=== PATIENT | female | born 1995 | race Caucasian/White ===

== ENCOUNTER 2016-09-25 06:48 | Inpatient (IN) | payer OTHER ==
[2016-09-18 17:36] VITALS: BMI 21.5
[2016-09-25] MEDS ORDERED: BUPIVACAINE HCL/PF 2.5 MG/ML - 30 ML VIAL IJ ONE (07:22)
[2016-09-25] MEDS ORDERED: GUM MASTIC/STORAX/MSAL/ALCOHOL 1 DRP DROPSBTL MC ONE (07:23)
[2016-09-25] MEDS ORDERED: LIDOCAINE 1%-EPI 1:100,000 30 ML MDV IJ ONE (07:23)
[2016-09-25] MEDS ORDERED: CEFAZOLIN (PRE-DOCKED) 50 ML IVPB ONE (07:37)
[2016-09-25] MEDS ORDERED: PROPOFOL 20 ML ONE (07:40)
[2016-09-25] MEDS ORDERED: ROCURONIUM BROMIDE 50 MG/5 ML VIAL ONE (07:40)
[2016-09-25] MEDS ORDERED: SUCCINYLCHOLINE CHLORIDE 200 MG/10 ML VIAL ONE (07:40)
[2016-09-25] MEDS ORDERED: MIDAZOLAM HCL 2 MG/2 ML SINGLE DOSE VIAL ONE ×5 (07:41→11:23)
[2016-09-25] MEDS: GABAPENTIN 300 MG CAPSULE (FP) PO ONE (07:50)
[2016-09-25] MEDS: oxyCODONE HCL 10 MG SUSTAINED ACTING TABLET PO STA (07:50)
--- NOTE | 2016-09-25 07:55 | HP ---
History & Physical Update - History History: No Change - Physical Physical: No Change - Assessment Assessment: No Change - Plan Plan: No Change (Prior to surgery, pt c/o low back pain radiating down LLE to ankle. This is my first time meeting the patient. Introduced myself and informed her that I will be assisting Dr. Bradley. Patient is fine with it.)
[2016-09-25 08:32] LABS: INR 0.94 (0.82-1.09); PROTHROMBIN TIME (PATIENT) 10.5 SEC (10.2-13.0)
[2016-09-25] MEDS ORDERED: BUPIVACAINE HCL/PF 0.5% (5MG/ML) 10 ML VIAL ONE (08:33)
[2016-09-25] MEDS ORDERED: PHENYLEPHRINE HCL 10 MG/1 ML SINGLE DOSE VIAL ONE (08:38)
[2016-09-25] MEDS ORDERED: ePHEDrine SULFATE 50 MG/1 ML AMPULE ONE (08:40)
[2016-09-25] MEDS ORDERED: FLUMAZENIL 0.5 MG/5 ML VIAL ONE (09:25)
[2016-09-25] MEDS ORDERED: LIDOCAINE 1%/EPI 1:100000 (50 ML MULTI DOSE VIAL) INF ONE (09:30)
[2016-09-25] MEDS ORDERED: LIDOCAINE HCL 1%, 10 MG/ML (20ML VIAL) ONE (09:41)
[2016-09-25] MEDS ORDERED: LIDOCAINE HCL 1%, 10 MG/ML (50 mL VIAL) IJ ONE (09:50)
[2016-09-25] MEDS ORDERED: LIDOCAINE HCL 1%, 10 MG/ML (50 mL VIAL) INF ONE (09:50)
[2016-09-25] MEDS ORDERED: KETAMINE HCL 200 MG/20 ML VIAL ONE (10:58)
[2016-09-25] MEDS ORDERED: HYDROmorphone HCL/PF 1 MG/ML VIAL (FOR PYXIS CHARGING ONLY) ONE (11:43)
[2016-09-25] MEDS ORDERED: oxyCODONE HCL 5 MG TABLET PO PRN ×2 (11:49)
[2016-09-25] MEDS ORDERED: morphine CARPU-JECT 4 MG/1 ML DISP.SYRIN IVPUSH PRN (11:49)
[2016-09-25] MEDS ORDERED: ONDANSETRON 4 MG/2 ML VIAL IVPB PRN (11:49)
[2016-09-25] MEDS ORDERED: ONDANSETRON 4 MG/2 ML VIAL ONE (11:49)
[2016-09-25] MEDS ORDERED: CYCLOBENZAPRINE HCL 10 MG TABLET (FP) PO PRN (11:49)
[2016-09-25] MEDS ORDERED: ACETAMINOPHEN INJECTION 100 ML IVPB ONE (11:51)
[2016-09-25] MEDS ORDERED: diazePAM CARPU-JECT 10 MG/2 ML DISP.SYRIN ONE (11:51)
[2016-09-25] MEDS ORDERED: diazePAM 5 MG TABLET PO PRN (11:52)
[2016-09-25] MEDS ORDERED: diazePAM CARPU-JECT 10 MG/2 ML DISP.SYRIN IVPUSH ONE (11:52)
[2016-09-25] MEDS: ACETAMINOPHEN 1000 MG/100 ML VIAL (NON FORMULARY) IVPB SCH ×2 (11:55→17:35)
--- NOTE | 2016-09-25 11:58 | OP ---
Operative Note - Note: Operative Date: 09/25/16 Pre-Operative Diagnosis: Herniated disc with lumbar radiculopathy Operation: TLIF L5-S1 with allograft implant under neuromonitoring Post-Operative Diagnosis: Same as Pre-op Surgeon: Fidencio Bradley It Security Consultant: Get Quinteros Anesthesiologist/CLOTH SHRINKING SUPERVISOR: Florentino Sewell Anesthesia: Spinal Estimated Blood Loss (mls): 20 Fluid Volume Replaced (mls): 1,200 Operative Report Dictated: Yes
[2016-09-25] MEDS ORDERED: GABAPENTIN 300 MG CAPSULE (FP) PO SCH (12:00)
--- NOTE | 2016-09-25 12:01 | SURG ---
Surgery Driver Service Technician Note Driver Service Technician: Get Quinteros PA-C Date of Service: 09/25/16 Diagnosis: Lumbar spondylolithesis with radiculopathy Procedure: CPT CODES: 42681, 25953, [id number] Posterior lumbar decompression/fusion/instrumentation, transforaminal lumbar interbody fusion L5-S1 with allograft and neuromonitoring I was present for the entirety of the operative procedure. For further detail, please refer to operative report Visit type - Case Type Case Type: Scheduled Admission - New patient This patient is new to me today: Yes Date on this admission: 09/25/16
[2016-09-25] MEDS ORDERED: HYDROmorphone HCL CARPU-JECT 1 MG/1 ML DISP.SYRIN ONE ×2 (12:26→13:08)
[2016-09-25] MEDS: HYDROmorphone HCL CARPU-JECT 1 MG/1 ML DISP.SYRIN ONE ×2 (12:51→13:01)
[2016-09-25] MEDS ORDERED: HYDROmorphone HCL CARPU-JECT 1 MG/1 ML DISP.SYRIN IVPUSH PRN ×2 (13:11)
[2016-09-25] MEDS ORDERED: HYDROmorphone *PCA* 10MG/50ML DISP.SYRIN PCA SCH ×2 (13:15→13:30)
[2016-09-25] MEDS: LACTATED RINGERS SOLUTION 1,000 ML IV SCH (14:15)
[2016-09-25] MEDS: CEFAZOLIN 1 GM/D5W 50 ML IVPB SCH (17:11)
[2016-09-25] MEDS: GABAPENTIN 300 MG CAPSULE (FP) PO SCH (21:53)
[2016-09-26] MEDS ORDERED: ONDANSETRON 4 MG/2 ML VIAL IVPUSH PRN (00:01)
[2016-09-26] MEDS: ACETAMINOPHEN 1000 MG/100 ML VIAL (NON FORMULARY) IVPB SCH ×2 (00:01→06:31)
[2016-09-26] MEDS: CEFAZOLIN 1 GM/D5W 50 ML IVPB SCH (00:02)
--- NOTE | 2016-09-26 06:17 | OP ---
DATE OF OPERATION: 09/25/2016 PREOPERATIVE DIAGNOSIS: Spinal stenosis, L5-S1. Reherniation L5-S1 POSTOPERATIVE DIAGNOSIS: Spinal stenosis, L5-S1. PROCEDURES PERFORMED: 1. Revision laminectomy, L5-S1. 2. Transforaminal lumbar interbody fusion. 3. Placement of instrumentation. 4. Placement of prosthetic cage. SURGEON: Fidencio Bradley MD WARP DYEING VAT TENDER: FATMATA Dawson ESTIMATED BLOOD LOSS: 50 mL. INTRAVENOUS FLUID: Per Anesthesia. ANESTHESIA: Spinal. COMPLICATIONS: There were none. DISPOSITION: Patient brought to the PACU in stable condition. INDICATIONS FOR SURGERY: The patient is a 21-year-old female who has been suffering from pain from her back down her legs. X-rays and MRI were completed, which noted that she had spinal stenosis at L5-S1. She had previously undergone two microdiscectomies, and she reherniated. At this point, I had a long discussion with the patient and the patients mom. She had been suffering from significant pain and had been going to the ER multiple times because of her pain. She had been taking injections and different pills, but unfortunately, her pain was not controlled. We discussed different methods of managing this including spinal cord stimulator versus surgery. I told her the surgery would be laminectomy versus fusion. We had a thorough discussion about the risks and benefits of all the procedures, and the patient consented to surgery. OPERATIVE NOTE: Patient was brought to the operating room by the anesthesia staff. After appropriate patient identification was performed and spinal anesthesia was given, she was placed prone onto the OR table with all areas of bony prominences well padded. At this time, the C-arm was brought in, the L5-S1 pedicles were marked off. Lidocaine, 10 mL, with epinephrine was injected into her back. At this time, her back was prepped and draped in a sterile manner. At this point, a time-out was completed. An incision was made bilaterally with the L5-S1 pedicles. Dissection was carried down to the fascia. Fascia was split open at this time. Under C-arm guidance, trocars were advanced into both the L5 and S1 pedicles. Through the trocars, wire was inserted. Over the wires, tap was performed and screws were inserted. On the left-hand side, retractor blades were set up to expose the L5-S1 facet joint. This was entered using a series of pituitaries, Kerrisons, and curettes. A discectomy was completed. The end-plates were decorticated at this time. Bone graft was laid down. A cage measured and placed in. Tulip heads were placed over the screws. A alex was measured and placed in, capsule placed on, compression and final tightening was performed. On the right-hand side, a alex was measured, capsule placed on, compression and final tightening was performed. AP and lateral x-rays confirmed the instrumentation to be in good position. All bleeding was well controlled at this time. The fascia was closed with a No. 1 Vicryl suture. The subcutaneous tissues were closed with 2-0 Vicryl suture. Skin was closed with 3-0 Monocryl suture. Dermabond was applied. Steri-Strips were applied. Sterile dressings applied. Patient was placed supine on the OR bed and brought to the PACU in stable condition. Gian JACKSON/[id number] MTDD
[2016-09-26] MEDS: GABAPENTIN 300 MG CAPSULE (FP) PO SCH ×3 (06:33→21:49)
[2016-09-26 08:46] LABS: ANION GAP 7 (8-16); CALCIUM 8.7 mg/dl (8.4-10.2); CO2 27 mmol/L (22-28); CREATININE 0.7 mg/dl (0.6-1.3); GLUCOSE,RANDOM 105 mg/dl (74-106)
[2016-09-26 08:57] LABS: MCHC 35.2 g/dl (32.0-36.0); MEAN CELL VOLUME 93.8 fl (80-96); MEAN PLT VOLUME 7.7 fl (7.5-11.1); PLATELET COUNT 260 K/MM3 (134-434); RDW 12.6 % (11.6-15.6); WHITE BLOOD COUNT 9.7 K/mm3 (4.0-10.8)
[2016-09-26] MEDS ORDERED: HYDROmorphone *PCA* 10MG/50ML DISP.SYRIN PCA SCH (09:30)
--- NOTE | 2016-09-26 09:52 | PN ---
Progress Note (short form) - Note Progress Note: POD#1 Pt states that she is oob/ambulating. Voiding and tolerating a diet. Her pain comes and goes but overall she has pain in her left leg. Vital Signs Period Temp Pulse Resp BP Sys/[place] Pulse Ox Last 24 Hr 98.5 F-100.5 F 72-108 10-20 96-142/48-85 95-99 PE: CV: RRR Lungs: CTA b/l ABD: soft, non-distended, non-tender Neuro: 5/5 dorsi/plantar/EHL flexion b/l. BACK: dressing c/d/i, no ecchymosis, masses LE: no calf tenderness or swelling noted b/l CBC, BMP 09/26/16 08:11 09/26/16 08:11 A/P: 21 yo female s/p TLIF, L5-S1 plan for xray today, Pt and oob/ambulate Incentive spirometer, instructed pt on use every 10 times per hour while awake Pt lethargic this am, will discontinue IV dilaudid HEEL NAIL RASPER. Spoke with Anesthesia and will change her pain plan. Dr. Vega was on hold with her pain managment Dr's office, Dr. Jain. Called and left a message to have his office phone back myself or Dr. Bradley to schedule outpt pain managment and follow-up. D/w Dr. Bradley will monitor fever curve, encourage oob/ambulate/incentive spirometer I spoke with her mother and will obtain a psych consult, pt with anxiety from pain issues. <Jessica Palmer - Last Filed: 09/26/16 11:17> - Note Progress Note: Patient seen and examined Agree with Above Will consider PO Dilaudid for pain control <Fidencio Bradley - Last Filed: 09/28/16 11:55>
[2016-09-26] MEDS ORDERED: HYDROmorphone HCL 2 MG TABLET PO PRN (10:25)
[2016-09-26] MEDS ORDERED: diazePAM 2 MG TABLET PO PRN (10:25)
[2016-09-26] MEDS ORDERED: DOCUSATE SODIUM 100 MG CAPSULE (FP) PO PRN (10:26)
[2016-09-26] MEDS: oxyCODONE HCL 10 MG SUSTAINED ACTING TABLET PO SCH ×2 (10:50→21:39)
[2016-09-26] MEDS: LORazepam 0.5 MG TABLET PO PRN (10:50)
--- NOTE | 2016-09-26 20:37 | CON.PSY ---
Psychiatry Consult Chief Complaint: Asked to see thisi patient, a 21 year old female with a hx of chronic pain s/p spinal fusion Post up day#1 Symptoms: reports: Sleep Disturbance, Irritability, Anxiety (c/o of nightmares after surgery. She stated that she was 'awake' and now when she tries to sleep she can hear the the 'drilling', etc during the surgical procedure.), Restlessness - Current Medications Current Medications: Active Medications Diphenhydramine HCl (Benadryl Injection -) 12.5 mg IVPUSH Q4H PRN Docusate Sodium (Colace -) 100 mg PO BID PRN PRN Reason: CONSTIPATION Gabapentin (Neurontin -) 600 mg PO TID [facility] Last Admin: 09/26/16 14:00 Dose: 600 mg Hydromorphone HCl (Dilaudid -) 2 mg PO Q4HWA PRN PRN Reason: PAIN LEVEL 1-5 Hydromorphone HCl (Dilaudid -) 4 mg PO Q4H PRN PRN Reason: PAIN LEVEL 6-10 Last Admin: 09/26/16 19:02 Dose: 4 mg Hydromorphone HCl (Dilaudid -) 6 mg PO Q4H PRN PRN Reason: PAIN Last Admin: 09/26/16 10:50 Dose: 6 mg Lactated Ringer's (Lactated Ringers Solution) 1,000 mls @ 125 mls/hr IV ASDIR [facility] Last Admin: 09/25/16 14:15 Dose: 125 mls/hr Lorazepam (Ativan -) 0.5 mg PO TID PRN PRN Reason: ANXIETY Last Admin: 09/26/16 10:50 Dose: 0.5 mg Ondansetron HCl (Zofran Injection) 4 mg IVPB Q6H PRN PRN Reason: NAUSEA AND/OR VOMITING Last Admin: 09/25/16 11:50 Dose: 4 mg Oxycodone HCl (Oxycontin -) 20 mg PO BID [facility] Last Admin: 09/26/16 10:50 Dose: 20 mg - Allergies Allergies: Allergies Allergy/AdvReac Type Severity Reaction Status Date / Time ciprofloxacin [From Cipro] Allergy Severe Hives Verified 09/18/16 17:26 ciprofloxacin HCl Allergy Severe Hives Verified 09/18/16 17:26 [From Cipro] ketorolac tromethamine Allergy Severe Difficulty Verified 09/18/16 17:26 [From Toradol] Breathing metronidazole [From Flagyl] Allergy Severe Hives Verified 09/18/16 17:26 sulfamethoxazole Allergy Severe Hives Verified 09/18/16 17:26 [From Bactrim] trimethoprim [From Bactrim] Allergy Severe Hives Verified 09/18/16 17:26 - Current Living Status Usual Living Arrangement: With Parent - Current Mental Status Evaluation Attitude: Cooperative - Affect Affect: Labile Appropriateness: Appropriate to Content - Mood Mood: Anxious, Irritable - Speech/Language Expressive: Coherent Receptive: Age Appropriate Comprehension of Spoken Words - Psychomotor Activity Psychomotor Activity: Normal - Thought Process Thought Process: Intact - Thought Content Hallucinations: Absent Delusions: Absent - Self Perception Self Perception: No Impairment - Cognition Attention: Alert Memory, Short Term: 3/3 Memory, Remote with Promptin/3 - Abstraction Proverb Interpretation: Intact Judgement: Minimally Impaired - Insight Insight: Intact - Impulse Control Impulse Control: Minimally Impaired - Suicidal Ideation Suicidal Ideation: No - Homicidal Ideation Homicidal Ideation: No Assessment/Plan Patient is a 21 year old female with a hx of chronic back pain for about 4 years now. Patients do get PTSD after surgery but usually is after long stay in ICU She does have nightmares but it may be too early to manifest PTSD symptoms and to make that diagnosis. She denies depression prior to this event and is currently in college and doing well Rec Follow up with mental health to treat pain/depression and to follow up for PTSD symptoms She may do well on a SNIR like Effexor, if clinically indicated, upon her discharge
[2016-09-27] MEDS: LACTATED RINGERS SOLUTION 1,000 ML IV SCH (00:11)
[2016-09-27] MEDS: ACETAMINOPHEN 1000 MG/100 ML VIAL (NON FORMULARY) IVPB SCH (00:52)
[2016-09-27] MEDS: oxyCODONE HCL 10 MG SUSTAINED ACTING TABLET PO STA (00:52)
[2016-09-27] MEDS: GABAPENTIN 300 MG CAPSULE (FP) PO ONE (00:53)
[2016-09-27] MEDS: GABAPENTIN 300 MG CAPSULE (FP) PO SCH ×3 (05:16→23:00)
[2016-09-27] MEDS: LORazepam 0.5 MG TABLET PO PRN ×3 (05:17→20:25)
--- NOTE | 2016-09-27 08:50 | PN ---
Progress Note (short form) - Note Progress Note: POD#2 As per nursing staff, pain better controlled overnight. This am she has increased pain, just back from the restroom and having left leg pain. Vital Signs Period Temp Pulse Resp BP Sys/[place] Pulse Ox Last 24 Hr 98.4 F-100.3 F 82-105 18-20 91-124/60-66 98-99 PE: GEN: appears uncomfortable Back: inc c/d/i with steri-strips. No ecchymosis, no erythema or masses. Neuro: 09/08 b/l dorsi/plantar/EHL felxion Calf: no swelling noted Duplex study: no evidence of DVT in left leg. A/P: s/p TLIF, POD#2 L5-S1 Spoke with Dr. Bradley and placed a consult for pain managment with Dr. Rivera will continue with oxcontin, dilaudid, tylenol and ativan Psych note appreciated oob and ambulate with PT <Jessica Palmer - Last Filed: 09/27/16 09:05> - Note Progress Note: Patient seen and examined Agree with above Pain is under better control Will attempt to have patient F/U with pain management <Fidencio Bradley - Last Filed: 09/28/16 12:13>
[2016-09-27] MEDS: oxyCODONE HCL 10 MG SUSTAINED ACTING TABLET PO SCH ×2 (09:32→22:00)
--- NOTE | 2016-09-27 16:43 | ED.PROV ---
Physicial Exam I saw and examined the patient. - Vital Signs Last Vital Signs Temp Pulse Resp BP Pulse Ox 100.3 F H 105 H 20 124/66 98 09/27/16 06:00 09/27/16 06:00 09/27/16 09:00 09/27/16 06:00 09/27/16 09:00 - Physical Exam Reason for Response: 09/27/16 16:38 21-year-old female, with 4 years of chronic back pain and left sided sciatica, had an L5-S1 spinal fusion on Sunday, 09/25 She's been having chronic left leg pain issues since the surgery, and is being evaluated by orthopedics Today she was up walking with a walker with physical therapy, and her leg gave out, and she had a controlled fall, partially held by physical therapy, to the ground, and struck her left knee I was called to evaluate her to check her knee There was no head trauma or loss of consciousness There is no neck pain There was no other injury Patient states that the controlled fall made her chronic postop pain a little worse The orthopedic PA, Jessica Mann, was notified Physical exam Last Vital Signs Temp Pulse Resp BP Pulse Ox 100.3 F H 105 H 20 124/66 98 09/27/16 06:00 09/27/16 06:00 09/27/16 09:00 09/27/16 06:00 09/27/16 09:00 The patient is alert and answering questions Head is normocephalic and atraumatic The surgical dressing on the back is clean, without evidence of blood or drainage Left lower extremity- There is full range of motion of the left hip and left ankle The dorsalis pedis pulse is full and palpable in the left foot The toes are warm Left knee- The tendon and patellar tendons are intact There is no point tenderness on the patella or anterior knee There is some musculoskeletal tenderness on stressing the hamstrings The knee is stable, with intact ligaments I called Jessica Mann, the orthopedic PA, and discussed my exam of the patient I also did discuss the vital signs today, and the temperature 100.3, which she is aware of She states that they are working this up, and pain management is also coming to see the patient She will continue to reevaluate the patient and is aware of the fall, the patient's symptoms, and the current vital signs
[2016-09-28] MEDS: GABAPENTIN 300 MG CAPSULE (FP) PO SCH ×3 (06:56→21:16)
[2016-09-28] MEDS ORDERED: MAGNESIUM HYDROX 2400MG/30ML ORAL SUSPENSION 30 ML CUP PO ONE (08:45)
[2016-09-28] MEDS: oxyCODONE HCL 10 MG SUSTAINED ACTING TABLET PO SCH ×2 (09:14→21:15)
[2016-09-28] MEDS: LORazepam 0.5 MG TABLET PO PRN ×2 (09:16→18:37)
[2016-09-28 14:39] VITALS: BP 85/53; PULSE 83; TEMP 98.8
--- NOTE | 2016-09-28 15:23 | PN ---
Progress Note (short form) - Note Progress Note: POD #3 Alert. Laying in bed RLR. She is s/p L5-S1 spinal and still c/o chronic left leg pain issues. Yesterday, she was ambulating with her walker?physical therapist when she stated that her left leg gave out, and she had a controlled fall, partially held by physical therapy, to the ground, and struck her left knee. She was seen and evaluated by ER attending. Denies n/v/f/c, CP, SOB, numbness/tingling. Last Vital Signs Temp Pulse Resp BP Pulse Ox 98.8 F 83 17 85/53 98 09/28/16 14:38 09/28/16 14:38 09/28/16 14:38 09/28/16 14:38 09/28/16 14:38 PE GEN: alert. NAD. CV: RRR Lungs: CTA b/l Neuro: 5/5 dorsi/plantar/EHL flexion b/l. BACK: dressing c/d/i, Mild infalmmatory changes without collection. LE: no calf tenderness or swelling <Get Quinteros P - Last Filed: 09/28/16 15:32> - Note Progress Note: Patient seen and examined Agree with Above Patient will be D/C'd and F/U with Dr Rivera from pain management <Fidencio Bradley - Last Filed: 10/05/16 09:19> Problem List - Problems (1) Spondylolisthesis at L5-S1 level Assessment/Plan: POD #3 s/p Posterior lumbar decompression/fusion/instrumentation, transforaminal lumbar interbody fusion L5-S1 with allograft and neuromonitoring P/atient has scheduled appointment with Dr. Rivera (Director Of Market Analysis) at 13:45 on 09/29/16. According to [facility], patient had 2 scripts filled on the same day for Percocet 5/325 (Total pills dispensed 130). Cleared for discharge. Code(s): M43.17 - SPONDYLOLISTHESIS, LUMBOSACRAL REGION <Get Quinteros P - Last Filed: 09/28/16 15:32>
--- NOTE | 2016-09-29 08:58 | DS ---
Physical Exam: SUBJECTIVE: Patient seen and examined by Get Quinteros, day of discharge OBJECTIVE: Vital Signs Temperature 98.8 F 09/28/16 14:38 Pulse Rate 83 09/28/16 14:38 Respiratory Rate 17 09/28/16 14:38 Blood Pressure 85/53 09/28/16 14:38 O2 Sat by Pulse Oximetry (%) 98 09/28/16 14:38 PHYSICAL EXAM PE GEN: alert. NAD. CV: RRR Lungs: CTA b/l Neuro: 5/5 dorsi/plantar/EHL flexion b/l. BACK: dressing c/d/i, Mild infalmmatory changes without collection. LE: no calf tenderness or swelling LABS CBC,CMP WBC 9.7 K/mm3 (4.0-10.8) 09/26/16 08:11 RBC 3.70 M/mm3 (3.60-5.2) 09/26/16 08:11 Hgb 12.2 GM/dl (10.7-15.3) 09/26/16 08:11 Hct 34.7 % (32.4-45.2) 09/26/16 08:11 MCV 93.8 fl (80-96) 09/26/16 08:11 MCHC 35.2 g/dl (32.0-36.0) 09/26/16 08:11 RDW 12.6 % (11.6-15.6) 09/26/16 08:11 Plt Count 260 K/MM3 (134-434) 09/26/16 08:11 MPV 7.7 fl (7.5-11.1) 09/26/16 08:11 Sodium 138 mmol/L (136-145) 09/26/16 08:11 Potassium 3.9 mmol/L (3.5-5.1) 09/26/16 08:11 Chloride 104 mmol/L (98-107) 09/26/16 08:11 Carbon Dioxide 27 mmol/L (22-28) 09/26/16 08:11 Anion Gap 7 (8-16) L 09/26/16 08:11 BUN 12 mg/dl (7-18) 09/26/16 08:11 Creatinine 0.7 mg/dl (0.6-1.3) 09/26/16 08:11 Random Glucose 105 mg/dl (74-106) 09/26/16 08:11 Calcium 8.7 mg/dl (8.4-10.2) 09/26/16 08:11 HOSPITAL COURSE: Date of Admission:09/25/16 Date of Discharge: 09/29/16 The patient was admitted to the Med-Surg Unit after an elective repair of their spinal stenosis. Now, s/p lumbar fusion of L5-S1. The day of surgery, the patient ambulated the hallways with assistance. IV dilaudid MIS DIRECTOR was used to contol the patients pain. An xray was obtained and confirmed hardware placement at L5-S1, no fractures or dislocations. Sherrell-operative IV ABX were administered. DVT prophylaxis was achieved with SCDs and early ambulation. The patient ambulated with Physical Therapy and no services were recommended upon discharge. The POD#2 her MIS DIRECTOR was discontinued and she was given oxcontin/ BID and oral dilaudid for breakthru pain. Her mother requested a psych consult which was completed. Also , a pain management consult was placed and follow-up appointment was scheduled with Dr. Rivera for 09/29/2016. Minutes to complete discharge: 20 Visit type - Case Type Case Type: Scheduled Admission - Emergency Emergency Visit: No - New patient This patient is new to me today: No - Critical Care Critical Care patient: No
[2016-09-29] MEDS ORDERED: MAGNESIUM HYDROX 2400MG/30ML ORAL SUSPENSION 30 ML CUP PO PRN (10:00)
== END 2016-09-28 21:40 | disposition home or self-care (01) | DRG 304 ==
LOC: FM/S 06:48
PROVIDERS: ADMIT Orthopaedic Surgery Orthopaedic Surgery of the Spine; ATTEND Orthopaedic Surgery Orthopaedic Surgery of the Spine
PROC: 0SG30AJ Fusion of Lumbosacral Joint with Interbody Fusion Device, Posterior Approach, Anterior Column, Open Approach (ICD-10-PCS; 2016-09-25)
PROC: 0SB40ZZ Excision of Lumbosacral Disc, Open Approach (ICD-10-PCS; principal; 2016-09-25 09:38)
DX: M51.27 Other intervertebral disc displacement, lumbosacral region (principal); M54.16 Radiculopathy, lumbar region; M43.17 Spondylolisthesis, lumbosacral region; M48.06 Spinal stenosis, lumbar region; F41.9 Anxiety disorder, unspecified; R45.1 Restlessness and agitation; F43.10 Post-traumatic stress disorder, unspecified; F32.9 Major depressive disorder, single episode, unspecified
CPT/HCPCS: 36415; 72100-TC; 80048; 84703; 85027; 85610; 93971-TC; 94010; 94760; 97116-GP; 97161-GP